=== PATIENT | male | born 1955 | race Caucasian/White ===

== ENCOUNTER 2018-12-31 16:15 | Emergency (ER) | payer OTHER, SELFPAY ==
[2018-12-31 16:18] VITALS: BP 152/87; PULSE 54; RESP 20; TEMP 35.8; O2SAT 98
--- NOTE | 2018-12-31 16:22 | DI.RAD.S_ITS ---
PROCEDURE: XR CLAVICLE LT INDICATIONS: deformity TECHNIQUE: 2 views of the clavicle were acquired. COMPARISON: None. FINDINGS: Bones: Left clavicle midshaft fracture is noted. Proximal fracture fragment is displaced superiorly. There is a segmented fracture fragment. Soft tissues: No suspicious soft tissue calcifications. IMPRESSION: Left clavicular midshaft fracture. Dictated by: Galina Higuera MD, PhD on 12/31/2018 at 16:47 Approved by: Galina Higuera MD, PhD on 12/31/2018 at 16:47
[2018-12-31] MEDS: HYDROCODONE/ACET 5/325 TABLET 1 TAB PO (16:51)
[2018-12-31] MEDS: KETOROLAC 60 MG/2 ML VIAL IM (16:52)
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
--- NOTE | 2018-12-31 17:05 | PC.NURSE ---
pt denies chest pain. reports left clavicle pain. left clavicle is broken, step off noted. pt has good pulses in his left arm. denies any numbness or tingling in left arm.
[2018-12-31] MEDS: CYCLOBENZAPRINE 10 MG TABLET PO (17:11)
--- NOTE | 2018-12-31 18:36 | PC.NURSE ---
pt was offered to move to a room at 1730, pt requested to stay in the recliner due to position of comfort. mer melendez
--- NOTE | 2018-12-31 18:50 | PC.NURSE ---
pt is tolerating his sling without incident. good pulses. denies any numbess or tingling
[2018-12-31 18:54] VITALS: BP 141/80; PULSE 60; RESP 18; O2SAT 98
== END 2018-12-31 19:10 | disposition home or self-care (01) ==
PROVIDERS: Emergency Provider Nurse Practitioner Family
DX: S42.022A Displaced fracture of shaft of left clavicle, initial encounter for closed fracture (principal); V18.0XXA Pedal cycle driver injured in noncollision transport accident in nontraffic accident, initial encounter
CPT/HCPCS: 73000; 96372; 99283; J1885

== ENCOUNTER → 2019-01-07 08:46 | Outpatient (CLI) | payer OTHER, SELFPAY ==
[2019-01-07 09:31] LABS: Add Manual Diff / Slide Review NO; Basophils Absolute Auto 100 /uL (0-100); Basophils Percent Auto 0.7 % (0-2); Eosinophils Absolute Auto 300 /uL (0-450); Eosinophils Percent Auto 4.9 % (2-4); Hematocrit 48.6 % (41-53); Hemoglobin 16.6 g/dL (13.5-17.5); Lymphocytes Absolute Auto 2000 /uL (1100-4500); Lymphocytes Percent Auto 28.9 % (25-40); Mean Corpuscular HGB Conc 34.1 % (30-36); Mean Corpuscular Hemoglobin 30.4 PG (26-34); Mean Corpuscular Volume 89.2 fL (80-100); Monocytes Absolute Auto 500 /uL (0-900); Monocytes Percent Auto 7.1 % (3-14); Neutrophils Absolute Auto 4100 /uL (1500-7000); Neutrophils Percent Auto 58.4 % (50-75); Platelet Count 278 X10^3/uL (150-400); Red Blood Cell Count 5.45 X10^6/uL (4.5-5.9); Red Cell Distribution Width 13.3 % (11.6-14.8)
[2019-01-07 10:07] LABS: Blood Urea Nitrogen 21 mg/dL (9-20); Calcium 9.2 mg/dL (8.4-10.2); Carbon Dioxide 31 mmol/L (22-32); Chloride 100 mmol/L (98-107); Estimated Glomerular Filt Rate > 60.0 mL/min (>60); Glucose 73 mg/dL (80-110); HEMOLYSIS < 15 (0-50); Potassium 4.5 mmol/L (3.4-5.1); Sodium 138 mmol/L (137-145)
== END ==
PROVIDERS: PCP Student in an Organized Health Care Education/Training Program; Visit Provider Orthopaedic Surgery Adult Reconstructive Orthopaedic Surgery
DX: Z01.818 Encounter for other preprocedural examination (principal); Z01.812 Encounter for preprocedural laboratory examination
CPT/HCPCS: 36415; 80048; 85025; 93005; 93010

== ENCOUNTER → 2023-06-30 09:22 | Outpatient (CLI) | payer MEDICARE, OTHER, SELFPAY ==
--- NOTE | 2023-06-30 09:25 | DI.RAD.S_ITS ---
PROCEDURE: XR HIP W PEL IF DONE RT 2V INDICATIONS: PAIN OF RIGHT HIP TECHNIQUE: AP pelvis with lateral view(s) of the right hip(s). COMPARISON: None. FINDINGS: Bones: No fractures or dislocations. Pelvic ring appears intact. There is mild right hip joint space narrowing. No suspicious bony lesions. Soft tissues: The visualized bowel gas pattern is normal. No suspicious soft tissue calcifications. IMPRESSION: Mild right hip osteoarthritis. Dictated by: Vania Collier M.D. on 06/30/2023 at 12:13 Approved by: Vania Collier M.D. on 06/30/2023 at 12:13
== END ==
PROVIDERS: PCP Student in an Organized Health Care Education/Training Program; Referring Provider Family Medicine; Visit Provider Family Medicine
DX: M16.11 Unilateral primary osteoarthritis, right hip (principal); M25.551 Pain in right hip
CPT/HCPCS: 73502